=== PATIENT | male | born 1985 | race Caucasian/White ===

== ENCOUNTER → 2019-03-11 09:01 | Outpatient (CLI) | payer MEDICAID, SELFPAY ==
--- NOTE | 2019-03-11 09:05 | RAD_ITS ---
STUDY: AIR-CONTRAST UPPER GI SERIES. REASON FOR EXAM: Male, 33 years old. Gastroesophageal reflux. FLUOROSCOPY TIME (if supplied): ( 60 seconds ) minutes/seconds. 16 fluoroscopic images. TECHNIQUE: The patient ingested barium. Multiple images of the esophagus, stomach and duodenum were obtained. COMPARISON: None. FINDINGS: The esophagus is unremarkable. There is no evidence of gastroesophageal reflux. No mass lesion is seen. The stomach and duodenum are unremarkable. No evidence of ulceration. RAD/Upper GI Series Only IMPRESSION: Unremarkable air-contrast upper GI series. Electronically Signed: Vini Gilmore, at 13:47 EST , Service support ,
== END ==
PROVIDERS: Family Provider Family Medicine; PCP Family Medicine; Referring Provider Nurse Practitioner Adult Health; Visit Provider Nurse Practitioner Adult Health
DX: K21.9 Gastro-esophageal reflux disease without esophagitis (principal); R10.13 Epigastric pain
CPT/HCPCS: 74246

== ENCOUNTER 2020-09-19 21:25 | Emergency (ER) | payer MEDICAID, SELFPAY ==
[2020-09-19 21:25] VITALS: BP 129/80; PULSE 89; RESP 20; TEMP 36.6; O2SAT 96; BMI 22.9
[2020-09-19 22:35] LABS: Absolute Lymphocyte Count 1.58 X10^3/uL (0.83-4.51); Absolute Neutrophil Count 4.4 X10^3/uL (2.0-7.7); Basophil# 0.01 X10^3/uL; Basophil% 0.1 % (0-1); Eosinophil# 0.08 X10^3/uL; Eosinophils% 1.1 % (0-5); Hematocrit 41.1 % (40-54); Hemoglobin 14.8 g/dL (13.0-16.5); Lymphocyte # 1.58 X10^3/ul (0.83-4.51); Lymphocyte % 22.3 % (19-41); Mean Corpuscular Hgb 32.2 pg (27.0-32.0); Mean Corpuscular Volume 89.5 fL (80-94); Mean Platelet Vol. 10.2 fl (6.2-12.0); Monocyte# 0.99 X10^3/uL; NRBC Flagged by Analyzer 0 % (0-5); Neutrophil % 62.2 % (47-70); Platelet Count 263 K/mm3 (150-450); RBC Distribution Width CV 12.3 % (11.6-14.6); RBC Distribution Width SD 39.9 fl (35.1-43.9); Red Blood Count 4.59 M/mm3 (4.6-6.2); White Blood Count 7.1 K/mm3 (4.4-11.0)
[2020-09-19 22:44] LABS: ALB/GLOB Ratio 1.3 RATIO (0.9-2.4); AST(SGOT) 14 U/L (15-37); Alanine Aminotransfer ALT/SGPT 22 U/L (16-61); Albumin, Serum 4.2 g/dL (3.2-5.0); Alkaline Phosphatase 63 U/L (45-117); Anion Gap 6 (5-15); BUN 11 mg/dL (7-18); BUN/Creat Ratio 12.3 RATIO (10-20); Chloride 113 mmol/L (98-107); Creatinine, Serum 0.89 mg/dL (0.70-1.30); EST Glomerular Filtration Rate 102 mL/min (>60); Est Glom Filt Rate - Afr Amer 123 mL/min (>60); Estimated Creatinine Clearance 124.64 ml/min; Globulin 3.3 g/dL (2.2-4.2); Glucose 99 mg/dL (74-106); Protein, Total 7.5 g/dL (6.4-8.2); Sodium Level 142 mmol/L (136-145)
[2020-09-19] MEDS: Naloxone 2 MG/2 ML Syringe IV (22:44)
--- NOTE | 2020-09-19 22:46 | RAD_ITS ---
STUDY: X-RAY CHEST REASON FOR EXAM: Male, 35 years old. Shortness of breath. Listed drug use. TECHNIQUE: Single AP portable view of the chest. COMPARISON: 04/25/2015. FINDINGS: The lungs are clear and expanded. There is no demonstrated pleural abnormality. Normal size heart. Normal mediastinum and jacqueline. Normal visualized pulmonary arteries. Normal visualized aortic arch and descending thoracic aorta. Normal visualized thoracic spine. Normal visualized ribs, clavicles, and shoulders. There is no demonstrated abnormality of the visualized soft tissue structures of the upper abdomen. RAD/Chest 1 View (Portable) IMPRESSION: No acute cardiopulmonary disease or major interval change. Electronically Signed: Star Shea DO at 23:03 EDT Tel [phone], Service support ,
--- NOTE | 2020-09-19 22:46 | EX.ED.DYSGE1 ---
HPI History of Present Illness Chief Complaint: Overdose Informant: patient and parent Onset/Context/Timing Onset: Today Context: Gradual Onset Timing: Waxes and wanes Quality: Somnolent Location: Generalized Worsened by: Nothing Relieved by: Nothing Narrative Narrative: Patient presents after opiate overdose tonight. Patient admits to using fentanyl earlier today. Patient also admits to smoking marijuana tonight. Mother states that the patient passed out at home and stopped breathing. Mother called EMS and patient was brought to the emergency department. Patient admits to some shortness of breath. Patient is still somewhat somnolent and is a poor historian. Mother states the patient was having some subjective fevers and chills earlier today. Patient denies any cough. Patient admits to nausea but denies any vomiting. [facility] Medical History (Updated 09/20/20 @ 00:[address] Luis Coleman DO) History of hepatitis C Substance abuse Home Medications NK 09/19/20 [History Last Taken Unknown] Allergy/AdvReac Type Severity Reaction Status Date / Time No Known Allergies Allergy Verified 04/25/15 18:15 Surgical History (Updated 09/19/20 @ 22:[address] Luis Coleman DO) History of lumpectomy of right breast History of removal of neck cyst Social History (Updated 09/19/20 @ 22:[address] Luis Coleman DO) Smoking Status: Current every day smoker tobacco type: cigarettes substance use type: marijuana and opiates ROS ROS ED Constitutional Constitutional ED: Reports chills, fever(s) and subjective Eyes Eyes: Denies blurry vision or change in vision ENT ENT ED: Reports rhinorrhea and sore throat Cardiovascular Cardiovascular: Reports chest pain; Denies palpitations Respiratory/Chest Respiratory/Chest: Reports dyspnea; Denies cough Gastrointestinal Gastrointestinal: Reports nausea; Denies vomiting Genitourinary Genitourinary ED: Denies dysuria or hematuria Musculoskeletal Musculoskeletal: Denies back pain or neck pain Integumentary Denies abscess or rash Neurologic Neurologic: Denies headache(s) or weakness Allergic/Immunologic Allergic/Immunologic ED: Denies mouth swelling or urticaria EXAM Physical Exam Const Vital Signs: 09/19/20 21:25 09/20/20 00:06 Temperature 97.8 F Temperature Source Temporal Pulse Rate 89 89 Respiratory Rate 20 H 17 Blood Pressure 129/80 H 108/80 Blood Pressure Mean 96 89 Pulse Ox 96 98 Oxygen Delivery Method Room Air Room Air Positive unkempt General Appearance ED: unkempt and NAD HEENT Reports moist mucous membranes Eyes PERRL Eyes Narrative: Pupils are miotic but equal and reactive to light Neck supple and no JVD Resp normal respiratory effort and clear to auscultation bilaterally Cardio regular rate and regular rhythm GI normal to inspection, nondistended, normoactive bowel sounds and non-tender Palpation: soft external exam normal, testes normal, scrotum normal, no scrotal swelling and no hernias present Penis: circumcised Testes: testicular lie normal Neuro oriented x3, CN's II-XII intact bilaterally and no sensory deficits noted Neuro Narrative: Patient is somewhat somnolent on exam but is alert and answers questions. Patient falls asleep easily. Sensorium / Orientation: alert Motor Exam: strength 5/5 throughout Psych Appearance: unkempt MDM MDM MDM Narrative Medical decision making narrative: Patient was given a dose of Narcan here. Patient was more awake and alert after this. CBC and comprehensive metabolic profile were within normal limits. Portable 1 view chest x-ray was obtained. On my interpretation, lung cummins are clear. There is normal cardiac silhouette. Bony thorax is normal. There is no acute process noted. Radiologist also interpreted the x-ray and agrees. Urinalysis was obtained and was within normal limits. Patient was advised of his findings. Patient was instructed to follow-up with his primary care physician in 5 to 7 days. Patient was also given a referral to 180. Patient understood and was agreeable with the plan. All questions were answered. Lab Data Attestation: I reviewed the patient's lab results. Labs: Laboratory Results - last 24 hr 09/19/20 09/19/20 09/20/20 22:15 22:15 00:42 WBC 7.1 RBC 4.59 L Hgb 14.8 Hct 41.1 MCV 89.5 MCH 32.2 H MCHC 36.0 RDW Std Deviation 39.9 RDW Coeff of Ken 12.3 Plt Count 263 MPV 10.2 Immature Gran % (Auto) 0.300 Neut % (Auto) 62.2 Lymph % (Auto) 22.3 [place] % (Auto) 14.0 H Eos % (Auto) 1.1 Baso % (Auto) 0.1 Absolute Neuts (auto) 4.4 Absolute Lymphs (auto) 1.58 Nucleated RBC % 0 Sodium 142 Potassium 4.0 Chloride 113 H Carbon Dioxide 23.0 Anion Gap 6 BUN 11 Creatinine 0.89 Estim Creat Clear Calc 124.64 Est GFR (MDRD) Af Amer 123 Est GFR (MDRD) Non-Af 102 BUN/Creatinine Ratio 12.3 Glucose 99 Calcium 9.0 Total Bilirubin 0.70 AST 14 L ALT 22 Alkaline Phosphatase 63 Total Protein 7.5 Albumin 4.2 Globulin 3.3 Albumin/Globulin Ratio 1.3 Urine Color Yellow Urine Clarity Clear Urine pH 5.0 Ur Specific Combes 1.025 Urine Protein 15 H Urine Glucose (UA) Normal Urine Ketones 5 H Urine Occult Blood Negative Urine Nitrite Negative Urine Bilirubin Negative Urine Urobilinogen 1 H Ur Leukocyte Esterase Negative Urine RBC 0 SEEN Urine WBC 0-5 SEEN Ur Squamous Epith Cells 0 SEEN Urine Bacteria 0 SEEN Urine Mucus 0 SEEN Radiography Diagnostic Testing: Radiology Impression Chest X-Ray 09/19/20 22:46 IMPRESSION: No acute cardiopulmonary disease or major interval change. Electronically Signed: Star Shea DO at 23:03 EDT Tel [phone], Service support , Discharge Plan Triage Chief Complaint: Overdose ED Provider: Luis Coleman Dx/Rx/DC Orders Clinical Impression: Opiate overdose Instructions: ED Opiate Abuse, ED Overdose, Opiate Prescriptions: No Action NK RF: 0 Primary Care Provider: Phillip Zuluaga Referrals: Phillip Zuluaga MD [Primary Care Provider] - 3-5 Days [facility] [STAFF PHYSICIAN] - As soon as possible Disposition Disposition: Home, self care
--- NOTE | 2020-09-19 22:48 | ED.RN ---
pt appears to be in full withdrawl symptoms. Blankets were given, pt is agitated thrashing in bed. aware.
[2020-09-20 00:06] VITALS: BP 108/80; PULSE 89; RESP 17; O2SAT 98
[2020-09-20 00:47] LABS: Bacteria 0 SEEN /hpf (None Seen); Mucous, Urine 0 SEEN /hpf (<or=2+); Red Blood Cells-Urine 0 SEEN /hpf (0-5); Squamous Epithelial Cells - UA 0 SEEN /hpf (0-5)
[2020-09-20 00:48] LABS: Color, Urine Yellow (Yellow); Glucose, Dipstick Normal (Normal); Ketone-Dipstick 5 mg/dl (Negative); Leukocyte Esterase-Dipstick Negative /ul (Negative); Nitrite-Dipstick Negative (Negative); Occult Blood-Urine Negative /ul (Negative); Protein-Dipstick 15 mg/dl (Negative); Specific Gravity, Urine 1.025 (1.002-1.030); Urine Bilirubin Dipstick Negative (Negative); Urine Clarity Clear (Clear); Urine Urobilinogen 1 mg/dl (Normal)
[2020-09-20 01:20] LABS: White Blood Cells 0-5 SEEN /hpf (0-5)
[2020-09-20 01:30] VITALS: BP 103/67; PULSE 82; RESP 16; O2SAT 97
== END 2020-09-20 01:45 | disposition home or self-care (01) ==
PROVIDERS: Emergency Provider Emergency Medicine; PCP Family Medicine
DX: T40.601A Poisoning by unspecified narcotics, accidental (unintentional), initial encounter (principal); R07.9 Chest pain, unspecified; R06.00 Dyspnea, unspecified; R40.0 Somnolence; Y92.9 Unspecified place or not applicable; F17.210 Nicotine dependence, cigarettes, uncomplicated; Z86.19 Personal history of other infectious and parasitic diseases
CPT/HCPCS: 71045; 80053; 81001; 85025; 96374; 99285; A4216

== ENCOUNTER 2020-10-19 09:05 | Observation (INO) | payer MEDICAID, SELFPAY ==
[2020-10-19 09:05] VITALS: BP 133/67; PULSE 90; RESP 18; TEMP 36.2; O2SAT 98; BMI 23.9
--- NOTE | 2020-10-19 09:16 | EDS_ITS ---
HPI History of Present Illness Chief Complaint: Substance Abuse Informant: patient Narrative Narrative: Patient is a 35-year-old male who presents to the emergency department to detox from heroin and fentanyl. He states he typically uses about a half a gram per day. Has been doing this daily over the past 3 months. He states he was clean for 3 years until a started a new job where everyone was using it. He states he got right back into it. He denies ever going through a detox program before. He does smoke marijuana as well. He denies any issues with alcohol. Patient states he only snorts the opioids. He does not inject. He does have a history of hepatitis C but underwent treatment for this. Patient otherwise denies any physical complaints at this time. He states he does get some shortness of breath but thinks he has the start of COPD as he does smoke cigarettes. [facility] Medical History (Updated 10/19/20 @ 16:[address] Gerardo Perkins, ) Anxiety Chronic pain COPD (chronic obstructive pulmonary disease) GERD (gastroesophageal reflux disease) History of hepatitis C Loose, teeth Opiate overdose Smoker Substance abuse Home Medications NK 09/19/20 [History Last Taken Unknown] Allergy/AdvReac Type Severity Reaction Status Date / Time No Known Allergies Allergy Verified 10/19/20 09:07 Surgical History History of lumpectomy of right breast History of removal of neck cyst Social History Smoking Status: Current every day smoker tobacco type: cigarettes substance use type: marijuana and opiates ROS ROS ED Constitutional Constitutional ED: Denies chills or fever(s) Eyes Eyes: Denies change in vision ENT ENT ED: Denies epistaxis or rhinorrhea Cardiovascular Cardiovascular: Denies chest pain or palpitations Respiratory/Chest Respiratory/Chest: Reports dyspnea; Denies cough Gastrointestinal Gastrointestinal: Denies abdominal pain, diarrhea, nausea or vomiting Musculoskeletal Musculoskeletal: Denies back pain or neck pain Integumentary Denies rash Neurologic Neurologic: Denies dizziness, headache(s) or weakness EXAM Physical Exam Const Vital Signs: 10/19/20 09:05 Temperature 97.2 F L Temperature Source Temporal Pulse Rate 90 Respiratory Rate 18 Blood Pressure 133/67 H Blood Pressure Mean 89 Pulse Ox 98 Oxygen Delivery Method Room Air Positive well nourished and well developed General Appearance ED: well developed and NAD HEENT Reports normocephalic, head/scalp atraumatic and moist mucous membranes Eyes PERRL and EOMs intact bilaterally Neck supple Chest Wall inspection of chest normal Resp normal respiratory effort and clear to auscultation bilaterally Auscultation: Negative for rales, rhonchi or wheezes Cardio regular rate, regular rhythm and no murmurs GI normal to inspection, nondistended, normoactive bowel sounds and non-tender Palpation: soft Extremity normal to inspection General Extremety ED: Negative for edema General Extremity: Negative for edema Neuro CN's II-XII intact bilaterally and no sensory deficits noted Sensorium / Orientation: alert Motor Exam: strength 5/5 throughout Psych mental status grossly normal Skin no rashes or lesions noted MDM MDM MDM Narrative Medical decision making narrative: Patient presents to the ED to detox from fentanyl and heroin. He was sent over from the [facility] program. Upon arrival to the emergency department he has normal vital signs. He otherwise is in no acute distress. Will check basic lab work and plan on admission to the hospital. Patient's lab work did not reveal any significant acute abnormality. He otherwise has been stable throughout ED stay. Will bring into the hospital for further evaluation and management. He understands and is agreeable with this plan. Lab Data Labs: Laboratory Results - last 24 hr 10/19/20 10/19/20 10/19/20 09:21 09:25 09:25 WBC 4.2 L RBC 4.33 L Hgb 13.4 Hct 40.1 MCV 92.6 MCH 30.9 MCHC 33.4 RDW Std Deviation 42.1 RDW Coeff of Ken 12.2 Plt Count 196 MPV 9.3 Immature Gran % (Auto) 0.200 Neut % (Auto) 49.8 Lymph % (Auto) 34.4 [place] % (Auto) 12.3 H Eos % (Auto) 2.8 Baso % (Auto) 0.5 Absolute Neuts (auto) 2.1 Absolute Lymphs (auto) 1.45 Nucleated RBC % 0 Sodium 139 Potassium 3.9 Chloride 106 Carbon Dioxide 29.0 Anion Gap 4 L BUN 9 Creatinine 0.74 Estim Creat Clear Calc 151.47 Est GFR (MDRD) Af Amer 153 Est GFR (MDRD) Non-Af 126 BUN/Creatinine Ratio 12.1 Glucose 89 Calcium 8.6 Total Bilirubin 0.20 AST 11 L ALT 19 Alkaline Phosphatase 64 Total Protein 6.7 Albumin 3.8 Globulin 2.9 Albumin/Globulin Ratio 1.3 Urine Opiates Screen POSITIVE H Urine Methadone Screen NEGATIVE Ur Barbiturates Screen NEGATIVE Ur Phencyclidine Scrn NEGATIVE Ur Amphetamines Screen NEGATIVE U Methamphetamin-MDMA NEGATIVE U Benzodiazepines Scrn NEGATIVE Urine Cocaine Screen NEGATIVE U Cannabinoids Screen POSITIVE H Ur Drug Screen Comment Ethyl Alcohol 10/19/20 09:25 WBC RBC Hgb Hct MCV MCH MCHC RDW Std Deviation RDW Coeff of Ken Plt Count MPV Immature Gran % (Auto) Neut % (Auto) Lymph % (Auto) [place] % (Auto) Eos % (Auto) Baso % (Auto) Absolute Neuts (auto) Absolute Lymphs (auto) Nucleated RBC % Sodium Potassium Chloride Carbon Dioxide Anion Gap BUN Creatinine Estim Creat Clear Calc Est GFR (MDRD) Af Amer Est GFR (MDRD) Non-Af BUN/Creatinine Ratio Glucose Calcium Total Bilirubin AST ALT Alkaline Phosphatase Total Protein Albumin Globulin Albumin/Globulin Ratio Urine Opiates Screen Urine Methadone Screen Ur Barbiturates Screen Ur Phencyclidine Scrn Ur Amphetamines Screen U Methamphetamin-MDMA U Benzodiazepines Scrn Urine Cocaine Screen U Cannabinoids Screen Ur Drug Screen Comment Ethyl Alcohol < 3.0 Discharge Plan Dx/Rx/DC Orders Clinical Impression: Opiate addiction Disposition Disposition: Acute Care Hospital [facility] Discharge Date/Time: 10/19/20 10:39
[2020-10-19 09:36] LABS: Absolute Lymphocyte Count 1.45 X10^3/uL (0.83-4.51); Absolute Neutrophil Count 2.1 X10^3/uL (2.0-7.7); Basophil# 0.02 X10^3/uL; Basophil% 0.5 % (0-1); Eosinophil# 0.12 X10^3/uL; Eosinophils% 2.8 % (0-5); Hematocrit 40.1 % (40-54); Hemoglobin 13.4 g/dL (13.0-16.5); Lymphocyte # 1.45 X10^3/ul (0.83-4.51); Lymphocyte % 34.4 % (19-41); Mean Corp Hgb Conc 33.4 g/dL (32-36); Mean Corpuscular Hgb 30.9 pg (27.0-32.0); Mean Corpuscular Volume 92.6 fL (80-94); Mean Platelet Vol. 9.3 fl (6.2-12.0); Monocyte# 0.52 X10^3/uL; Monocyte% 12.3 % (0-10); NRBC Flagged by Analyzer 0 % (0-5); Neutrophil % 49.8 % (47-70); Platelet Count 196 K/mm3 (150-450); RBC Distribution Width CV 12.2 % (11.6-14.6); RBC Distribution Width SD 42.1 fl (35.1-43.9); Red Blood Count 4.33 M/mm3 (4.6-6.2); White Blood Count 4.2 K/mm3 (4.4-11.0)
[2020-10-19 09:42] LABS: Amphetamine Urine VISTA NEGATIVE (<1000 ng/mL); Barbiturate Urine VISTA NEGATIVE (< 200 ng/mL); Benzodiazepine Urine VISTA NEGATIVE (< 200 ng/mL); Cocaine Urine VISTA NEGATIVE (< 300 ng/mL); Ecstacy Urine VISTA NEGATIVE (< 500 ng/mL); Methadone Urine VISTA NEGATIVE (< 300 ng/mL); PCP Urine VISTA NEGATIVE (< 25 ng/mL); THC Urine VISTA POSITIVE (< 50 ng/mL); Vista UDS pH Range 5
[2020-10-19 09:51] LABS: ALB/GLOB Ratio 1.3 RATIO (0.9-2.4); AST(SGOT) 11 U/L (15-37); Alanine Aminotransfer ALT/SGPT 19 U/L (16-61); Albumin, Serum 3.8 g/dL (3.2-5.0); Alkaline Phosphatase 64 U/L (45-117); Anion Gap 4 (5-15); BUN 9 mg/dL (7-18); BUN/Creat Ratio 12.1 RATIO (10-20); Calcium,Total 8.6 mg/dL (8.5-10.1); Chloride 106 mmol/L (98-107); Creatinine, Serum 0.74 mg/dL (0.70-1.30); EST Glomerular Filtration Rate 126 mL/min (>60); Est Glom Filt Rate - Afr Amer 153 mL/min (>60); Estimated Creatinine Clearance 151.47 ml/min; Globulin 2.9 g/dL (2.2-4.2); Glucose 89 mg/dL (74-106); Potassium 3.9 mmol/L (3.5-5.1); Protein, Total 6.7 g/dL (6.4-8.2); Sodium Level 139 mmol/L (136-145)
[2020-10-19 10:13] LABS: Alcohol, Blood (Medical)-Serum < 3.0 mg/dL
[2020-10-19 10:23] VITALS: BP 116/74; PULSE 80; RESP 16; TEMP 36.2; O2SAT 100
[2020-10-19 10:59] VITALS: BP 119/71; PULSE 70; RESP 18; TEMP 36.9; O2SAT 98; BMI 23.8
--- NOTE | 2020-10-19 12:32 | PCM.HP.STD ---
HPI - General General Date of Admission: 10/19/20 HPI Narrative Left AMA prior to my evaluation after he arrived to the floor. [facility] Medical History (Updated 10/19/20 @ 12:[address] Ramsey Herr MD) Anxiety Chronic pain COPD (chronic obstructive pulmonary disease) GERD (gastroesophageal reflux disease) History of hepatitis C Loose, teeth Opiate overdose Smoker Substance abuse Home Medications NK 09/19/20 [History Last Taken Unknown] Allergy/AdvReac Type Severity Reaction Status Date / Time No Known Allergies Allergy Verified 10/19/20 09:07 Surgical History History of lumpectomy of right breast History of removal of neck cyst Social History Smoking Status: Current every day smoker tobacco type: cigarettes substance use type: marijuana and opiates Vital Signs Vital Signs Vital Signs: 10/19/20 09:05 10/19/20 10:23 10/19/20 10:59 Temperature 97.2 F L 97.2 F L 98.5 F Temperature Source Temporal Temporal Oral Pulse Rate 90 80 70 Respiratory Rate 18 16 18 Respiratory Effort Respiratory Depth Respiratory Pattern Blood Pressure 133/67 H 116/74 119/71 Blood Pressure Mean 89 88 87 Blood Pressure Source Monitor Blood Pressure Position Semi-Fowlers Blood Pressure Location Right Arm Pulse Ox 98 100 98 Oxygen Delivery Method Room Air Room Air Room Air 10/19/20 11:19 Temperature Temperature Source Pulse Rate Respiratory Rate Respiratory Effort Normal Non-Labored Respiratory Depth Normal Respiratory Pattern Normal Blood Pressure Blood Pressure Mean Blood Pressure Source Blood Pressure Position Blood Pressure Location Pulse Ox Oxygen Delivery Method Room Air Weight Weight: 175 lb 6.4 oz Body Mass Index (BMI) 23.8 Results Lab / Micro Data Result Diagrams: 10/19/20 09:25 10/19/20 09:25 Labs: Laboratory Results - last 24 hr 10/19/20 10/19/20 10/19/20 09:21 09:25 09:25 WBC 4.2 L RBC 4.33 L Hgb 13.4 Hct 40.1 MCV 92.6 MCH 30.9 MCHC 33.4 RDW Std Deviation 42.1 RDW Coeff of Ken 12.2 Plt Count 196 MPV 9.3 Immature Gran % (Auto) 0.200 Neut % (Auto) 49.8 Lymph % (Auto) 34.4 [place] % (Auto) 12.3 H Eos % (Auto) 2.8 Baso % (Auto) 0.5 Absolute Neuts (auto) 2.1 Absolute Lymphs (auto) 1.45 Nucleated RBC % 0 Sodium 139 Potassium 3.9 Chloride 106 Carbon Dioxide 29.0 Anion Gap 4 L BUN 9 Creatinine 0.74 Estim Creat Clear Calc 151.47 Est GFR (MDRD) Af Amer 153 Est GFR (MDRD) Non-Af 126 BUN/Creatinine Ratio 12.1 Glucose 89 Calcium 8.6 Total Bilirubin 0.20 AST 11 L ALT 19 Alkaline Phosphatase 64 Total Protein 6.7 Albumin 3.8 Globulin 2.9 Albumin/Globulin Ratio 1.3 Urine Opiates Screen POSITIVE H Urine Methadone Screen NEGATIVE Ur Barbiturates Screen NEGATIVE Ur Phencyclidine Scrn NEGATIVE Ur Amphetamines Screen NEGATIVE U Methamphetamin-MDMA NEGATIVE U Benzodiazepines Scrn NEGATIVE Urine Cocaine Screen NEGATIVE U Cannabinoids Screen POSITIVE H Ur Drug Screen Comment Ethyl Alcohol 10/19/20 09:25 WBC RBC Hgb Hct MCV MCH MCHC RDW Std Deviation RDW Coeff of Ken Plt Count MPV Immature Gran % (Auto) Neut % (Auto) Lymph % (Auto) [place] % (Auto) Eos % (Auto) Baso % (Auto) Absolute Neuts (auto) Absolute Lymphs (auto) Nucleated RBC % Sodium Potassium Chloride Carbon Dioxide Anion Gap BUN Creatinine Estim Creat Clear Calc Est GFR (MDRD) Af Amer Est GFR (MDRD) Non-Af BUN/Creatinine Ratio Glucose Calcium Total Bilirubin AST ALT Alkaline Phosphatase Total Protein Albumin Globulin Albumin/Globulin Ratio Urine Opiates Screen Urine Methadone Screen Ur Barbiturates Screen Ur Phencyclidine Scrn Ur Amphetamines Screen U Methamphetamin-MDMA U Benzodiazepines Scrn Urine Cocaine Screen U Cannabinoids Screen Ur Drug Screen Comment Ethyl Alcohol < 3.0 Assessment & Plan Assessment/Plan (1) Opiate withdrawal: PLAN: Left AMA prior to my evaluation Charges/Coding Visit Charges Inpatient E&M: 39079 Init Hosp L2
--- NOTE | 2020-10-19 13:51 | NURSING ---
entered room with PRN meds to help with symptoms.. pt states he can not do this, he needs to smoke, pt very anxious, started pacing around room. asked it he wanted to take the meds i brought him to see if this will help pt states No i need to go, I can do better on my own got AMA papers- which pt signed, he got dressed and called his mom for a ride.
== END 2020-10-19 13:40 | disposition left against medical advice (07) ==
LOC: ED 09:45 → MS3 13:39
PROVIDERS: Admitting Provider Family Medicine; Emergency Provider Emergency Medicine; PCP Family Medicine; Visit Provider Family Medicine
DX: F11.23 Opioid dependence with withdrawal (principal); Z86.19 Personal history of other infectious and parasitic diseases; J44.9 Chronic obstructive pulmonary disease, unspecified; F17.210 Nicotine dependence, cigarettes, uncomplicated; K21.9 Gastro-esophageal reflux disease without esophagitis
CPT/HCPCS: 36415; 80053; 80307; 82077; 85025; 99218; 99283; G0378

== ENCOUNTER 2022-01-07 19:43 | Emergency (ER) | payer MEDICAID, SELFPAY ==
[2022-01-07 19:45] VITALS: BP 126/70; PULSE 89; RESP 14; TEMP 37; O2SAT 98; BMI 22.9
--- NOTE | 2022-01-07 19:45 | RAD_ITS ---
ACR Level 3 findings have been noted. An addendum which confirms receipt of the report will follow. EXAM: XR RIGHT FINGERS, 2 OR MORE VIEWS CLINICAL INDICATION: injury -- thumb TECHNIQUE: Frontal, lateral and oblique views of the fingers of the right hand. This report was created using [employer] report generation technology. COMPARISON: None. FINDINGS: BONES/JOINTS: See below. SOFT TISSUES: There is irregular contour at the palmar tip of the thumb, and an irregular calcific foreign body or bone fragment measuring 2.7 mm x 0.4 mm by 0.1 mm projecting roughly 2 mm posterior to the terminal tuft, best seen on lateral and oblique views, suspected to be small bone shaving fragment from the terminal tuft cortex on the oblique view. No soft tissue swelling or gas. RAD/Finger(s) Min 2 Views IMPRESSION: Irregular skin contour and small underlying calcific bone fragment or foreign body projecting roughly 8 mm deep to the skin and closely adjacent to the terminal tuft. Most likely cortical bone chip fracture fragment. Electronically Signed: Chelle Hallman MD at 22:12 EDT ,
--- NOTE | 2022-01-07 20:51 | EX.ED.UPPERE ---
HPI History of Present Illness Chief Complaint: Wound Informant: patient Narrative Narrative: [id number] male presents injury right thumb around 3 PM less than 6 hours ago. Helping with woodwork, states his father used a screw drill drilled through the board into his finger. He worked through his injury put bandages on. Tetanus unknown. No anticoagulation medicines. Bleeding controlled currently. No past medical history. Tetanus Immunization: Unknown Prior similar symptoms: No PFSH PFSH Medical History Anxiety Chronic pain COPD (chronic obstructive pulmonary disease) GERD (gastroesophageal reflux disease) History of hepatitis C Loose, teeth Opiate overdose Smoker Substance abuse Home Medications NK 09/19/20 [History Last Taken Unknown] Allergy/AdvReac Type Severity Reaction Status Date / Time No Known Allergies Allergy Verified 01/07/22 19:44 Surgical History History of lumpectomy of right breast History of removal of neck cyst Social History Smoking Status: Current every day smoker tobacco type: cigarettes substance use type: marijuana and opiates ROS ROS ED Constitutional Constitutional ED: Denies chills, fever(s) or sweats Eyes Eyes: Denies change in vision ENT ENT ED: Denies dysphagia or sore throat Cardiovascular Cardiovascular: Denies chest pain, leg edema, palpitations or racing heartbeat Respiratory/Chest Respiratory/Chest: Denies cough, dyspnea or dyspnea on exertion Gastrointestinal Gastrointestinal: Denies abdominal pain, diarrhea, nausea or vomiting Genitourinary Genitourinary ED: Denies dysuria, hematuria or urinary frequency Musculoskeletal Musculoskeletal: Denies back pain, extremity pain or neck pain Integumentary Reports wounds; Denies rash Neurologic Neurologic: Denies headache(s), paresthesias or weakness EXAM Physical Exam Const Vital Signs: 01/07/22 19:45 Temperature 98.6 F Temperature Source Temporal Pulse Rate 89 Respiratory Rate 14 Blood Pressure 126/70 H Blood Pressure Mean 88 Pulse Ox 98 Oxygen Delivery Method Room Air Positive well nourished and well developed General Appearance ED: well developed and NAD HEENT Reports moist mucous membranes normocephalic and atraumatic Eyes PERRL, EOMs intact bilaterally and conjunctivae normal General Eye ED: Yes normal appearance of both eyes Neck no lymphadenopathy and supple General: Negative for tenderness Chest Wall Chest: Negative for tenderness Resp normal respiratory effort and normal air movement Effort and Inspection: symmetric chest movement; Negative for respiratory distress Cardio regular rate, regular rhythm and no murmurs Peripheral Pulses: pulses 2+ throughout GI normal to inspection, nondistended, normoactive bowel sounds and non-tender Palpation: Negative for guarding or rebound tenderness present Back/Spine no CVA tenderness and no thoracic nor lumbar tenderness Extremity Extremity Narrative: Right thumb: Bandages removed: There was laceration across the volar aspect of the distal phalanx extending to the lateral aspect of the nail on the ulnar side is measuring 3 cm with stellate laceration. No nail involvement. No active bleeding. General Extremety ED: Negative for edema or tenderness General Extremity: Negative for edema Neuro oriented x3 and no sensory deficits noted Sensorium / Orientation: awake and alert Skin Skin Narrative: See above MDM MDM MDM Narrative Medical decision making narrative: Patient tetanus updated. Three-view x-ray right thumb reviewed myself and read by radiology notes concerning small avulsion cortical fracture. This is not an open fracture. Wound was copiously washed and repaired total of 6 sutures. Dressing and wound care discussed. Cage splint provided. Follow-up with his PCP in 10 to 14 days for reevaluation and suture removal. All questions were answered. Procedure note: Verbal consent. Normal sterile conditions. 4 cc lidocaine 1% for metacarpal block. Wound closely flushed with Shur-Clens and normal saline. Total 6 sutures of all simple interrupted nylon was placed for good approximation of the wound. Dressing placed by myself with bacitracin ointment. Patient tolerated procedure well. Discharge Plan Triage Chief Complaint: Wound ED Provider: Ye James Dx/Rx/DC Orders Clinical Impression: Laceration of right thumb, Tetanus toxoid vaccination administered at current visit, Avulsion fracture of bone Instructions: ED Laceration, Hand: All Closures Prescriptions: No Action NK Primary Care Provider: Phillip Zuluaga Referrals: Phillip Zuluaga MD [Primary Care Provider] - 10-14 Days suture removal Activity Restrictions/Additional Instructions: X-ray tiny avulsion chip fracture of the distal phalanx of thumb. 6 sutures were placed. Wound care as discussed. Splint for protection. Follow-up with your doctor in 10 to 14 days for evaluation and suture removal. Disposition Disposition: Home, Self Care Discharge Date/Time: 01/07/22 23:05
[2022-01-07] MEDS: Diphth,Pertuss(Acell),Tet Vac 0.5 ML Vial IM (21:01)
== END 2022-01-07 23:05 | disposition home or self-care (01) ==
PROVIDERS: Emergency Provider Emergency Medicine; PCP Family Medicine; Visit Provider Emergency Medicine
DX: S61.011A Laceration without foreign body of right thumb without damage to nail, initial encounter (principal); J44.9 Chronic obstructive pulmonary disease, unspecified; F17.210 Nicotine dependence, cigarettes, uncomplicated; Z23 Encounter for immunization; W29.8XXA Contact with other powered hand tools and household machinery, initial encounter
CPT/HCPCS: 12002; 73140; 90471; 90715; 99284